=== PATIENT | female | born 1965 | race Caucasian/White ===

== ENCOUNTER 2016-09-03 06:38 | Emergency (ER) | payer OTHER ==
[~2016-09-03] VITALS: Ht 137.2 cm; Wt 68.0 kg
[~2016-09-03 06:38] MED LIST: ALLEGRA ALLERG180 MG PO; ALLEGRA180 MG PO; ALLER-EASE180 MG PO; ANALGESIC BA28.35 GM; ANALGESIC325 MG PO; APAP500 PO; ASPIRIN EC325 M1 PO; BACTROBAN15 GM TP; CARBAMAZEPINE200 M2 PO; CARBAMAZEPINE200 M4 PO; CEPACOL SORE T1 EAC2 MM; CEPACOL SORE T1 EAC7 MM; CEPACOL SORE T1 EAC7 PO; CHILDREN'S ASPI81 M1 PO; CLEOCIN HCL150 MG PO; CLINDAMYCIN HC150 MG PO; COLACE100 MG PO; DARVOCET-N 1001 EACH PO; DEPAKENE250 MG PO; DEPAKOTE ER500 MG PO; DEPAKOTE250 MG PO; DEPAKOTE500 MG PO; DITROPAN XL15 MG PO; DIVALPROEX SOD250 M3 PO; EPIPEN 2-P0.3 MG/0.3 IM; EPIPEN0.3 MG/0.3 IM; FISH OIL 1,001000 M1 PO; FISH OIL 1,001000 M2 PO; FLUOXETINE HCL10 M1 PO; IBUPROFEN 400400 M1 PO; IBUPROFEN 400400 M2 PO; IBUPROFEN 600600 M1 PO; IBUPROFEN 800800 MG PO; IMDUR 30 MG TAB30 M1 PO; IMDUR 60 MG TAB60 M1 PO; IMODIUM A-D1 MG/5 ML PO; LEVOTHYROXIN0.075 MG PO; LIPITOR 20 MG T20 M1 PO; LOPERAMIDE 2 MG2 M1; LOXAPINE10 MG PO; LOXAPINE5 MG PO; MACROBID; MACRODANTIN50 MG PO; MECLIZINE 25 MG25 M1 PO; MICONAZOLE 7100 MG VG; MICONAZOLE NITR45 G1; MIRALAX17 G1 PO; MONISTAT 745 GM VG; MOTRIN 600 MG600 M1 PO; NAPROSYN500 MG PO; NEOSPORIN OINTM15 GM TP; NITROGLYCERIN0.4 MG SL; NITROGLYCERIN0.4 MG SUBLING; NITROSTAT0.4 MG SL; NORCO 5-325 TA1 EACH PO; OS-CAL 500+D C1 EACH PO; OS-CAL ULTRA T1 EACH PO; OXYBUTYNIN CHLO15 MG PO; OYSCO-500500 MG PO; OYSTER SHELL 51 EACH PO; OYSTER SHELL C1 EA12 PO; OYSTER SHELL C1 EA15; PERIDEX 0.12%473 M1; PHILLIPS' LAXA100 MG PO; PROZAC 10 MG CA10 M1; PROZAC 10 MG CA10 M1 PO; PROZAC 20 MG20 M1 PO; PROZAC 20 MG20 MG PO; PROZAC10 MG PO; REPLACE1 EACH PO; RISPERDAL 1 MG T1 MG PO; RISPERDAL0.5 MG PO; ROBITUSSIN DM118 ML PO; ROBITUSSIN10 MG PO; ROBITUSSIN15 MG/5 M1 PO; SIMVASTATIN40 MG PO; SYNTHROID75 MCG PO; TEGRETOL XR200 MG PO; THERA-M CAPLET1 EAC1 PO; THERA-TABS M C1 EACH PO; TIROSINT75 MCG PO; TRIPLE ANTIBIO1 EACH; TRIPLE ANTIBIOT28 G2 TOP; TYLENOL EX-STR500 M2 PO; TYLENOL325 MG PO; UREA85 G1; ZESTRIL5 MG PO; ZOCOR40 MG PO; [UNRECOGNIZED DRUG - OTHER]
== END 2016-09-03 10:21 ==
LOC: ER 06:38
DX: S01.511A Laceration without foreign body of lip, initial encounter (principal); S00.83XA Contusion of other part of head, initial encounter; I25.2 Old myocardial infarction; I10 Essential (primary) hypertension; E11.9 Type 2 diabetes mellitus without complications; M81.0 Age-related osteoporosis without current pathological fracture; F25.9 Schizoaffective disorder, unspecified; Q87.1 Congenital malformation syndromes predominantly associated with short stature; G47.33 Obstructive sleep apnea (adult) (pediatric); Z88.8 Allergy status to other drugs, medicaments and biological substances; Z88.1 Allergy status to other antibiotic agents; Z88.0 Allergy status to penicillin; W01.198A Fall on same level from slipping, tripping and stumbling with subsequent striking against other object, initial encounter; Y93.89 Activity, other specified; Y92.89 Other specified places as the place of occurrence of the external cause; Y99.8 Other external cause status

== ENCOUNTER 2017-02-26 20:50 | Emergency (ER) | payer OTHER ==
[~2017-02-26] VITALS: Ht 147.3 cm
== END 2017-02-26 22:57 | disposition home or self-care (01) ==
LOC: ER 20:50
DX: S60.221A Contusion of right hand, initial encounter (principal); S60.211A Contusion of right wrist, initial encounter; I10 Essential (primary) hypertension; E11.9 Type 2 diabetes mellitus without complications; I25.2 Old myocardial infarction; F20.9 Schizophrenia, unspecified; M81.0 Age-related osteoporosis without current pathological fracture; G47.33 Obstructive sleep apnea (adult) (pediatric); Q87.1 Congenital malformation syndromes predominantly associated with short stature; Z88.8 Allergy status to other drugs, medicaments and biological substances; Z88.1 Allergy status to other antibiotic agents; Z88.2 Allergy status to sulfonamides; W01.0XXA Fall on same level from slipping, tripping and stumbling without subsequent striking against object, initial encounter; Y93.89 Activity, other specified; Y92.89 Other specified places as the place of occurrence of the external cause; Y99.8 Other external cause status

== ENCOUNTER 2017-05-18 08:06 | Emergency (ER) | payer OTHER ==
[~2017-05-18] VITALS: Ht 144.8 cm; Wt 68.0 kg
--- NOTE | ~2017-05-18 | EKG ---
[place] [address] [place] [address] ELECTROCARDIOGRAM REPORT Name: BETY OAKLEY [id number] Admission: 05/18/17 Attend Phys: Discharge: 05/18/17 Date of : 63 Report #: [id number] THIS REPORT FOR: //name// [facility] ED Test Date: 2017-05-18 Test Time: 10:36:06 Pat Name: BETY OAKLEY Department: Room: Gender: F Design Intern: CATHY : 1965 Requested By: Devyn Marrufo Order Number: [id number] MD: Eddie Royal Measurements Intervals [place] Rate: 74 P: 47 IA: 147 QRS: 29 QRSD: 104 T: 62 QT: 460 QTc: 511 Interpretive Statements Sinus rhythm Consider inferior infarct Anteroseptal infarct, age indeterminate Prolonged QT interval Compared to ECG 05/22/2016 03:17:33 T-wave abnormality no longer present Electronically Signed On 05-18-2017 17:33:58 PHOTOGRAPHER SCIENTIFIC by Eddie Royal [email or web address] <ELECTRONICALLY SIGNED> By: Eddie Royal MD, [facility] 05/18/17 1733 35 35 Eddie Royal MD, [facility] /EPI
[2017-05-18] MEDS ORDERED: MYRBETRIQ25 MG PO (10:19)
[2017-05-18] MEDS ORDERED: CRESTOR20 MG PO (10:20)
[2017-05-18] MEDS ORDERED: THERA1 EAC1 PO (10:21)
[2017-05-18] MEDS ORDERED: EPIPEN0.3 MG/0.1 INJECTION (10:23)
[2017-05-18 10:24] LABS: HEMATOCRIT 29.7 % (37.0-47.0); HEMOGLOBIN 10.1 gm/dL (12.0-15.0); MCH 32.7 pg (26.0-34.0); MCHC 34.2 g/dL (28.0-37.0); MCV 95.7 fL (80.0-100.0); PLATELET COUNT 167 thou/uL (150-400); RDW 14.4 % (10.5-14.5); WBC 12.9 thou/uL (4.0-11.0)
[2017-05-18] MEDS ORDERED: BISACODYL SUPP10 MG RECTAL (10:25)
[2017-05-18] MEDS ORDERED: CEPASTAT CHERR18 TA2 PO (10:26)
[2017-05-18] MEDS ORDERED: ROBITUSSIN100 MG/53 PO (10:27)
[2017-05-18 10:28] LABS: CALCIUM 9.5 mg/dL (8.5-10.1); CREATININE 0.7 mg/dL (0.6-1.0)
[2017-05-18] MEDS ORDERED: ALLER-EASE180 MG PO (10:28)
[2017-05-18 10:29] LABS: POTASSIUM 4.3 mmol/L (3.5-5.1)
[2017-05-18 10:30] LABS: APTT 31.7 Seconds (24.5-32.8); INR 1.2; PROTIME 11.8 Seconds (9.3-11.4)
[2017-05-18 10:34] LABS: ALBUMIN 2.1 g/dL (3.4-5.0); TOTAL BILIRUBIN 0.7 mg/dL (<0.1-1.0); TOTAL PROTEIN 6.4 g/dL (6.4-8.2)
[2017-05-18 11:06] LABS: ABSOLUTE NEUTROPHILS 10.7 thou/uL (1.4-8.2); ANISOCYTOSIS SLIGHT; POLYCHROMASIA SLIGHT
[2017-05-18 11:43] VITALS: BP 112/56
[2017-08-07] MEDS ORDERED: ROBITUSSIN100 MG/53 PO (19:06)
== END 2017-05-18 11:49 | disposition short-term general hospital (02) ==
LOC: ER 08:06
PROVIDERS: Emergency Medicine
DX: G93.89 Other specified disorders of brain (principal); I62.00 Nontraumatic subdural hemorrhage, unspecified; I10 Essential (primary) hypertension; E11.22 Type 2 diabetes mellitus with diabetic chronic kidney disease; M81.0 Age-related osteoporosis without current pathological fracture; F20.9 Schizophrenia, unspecified; G47.33 Obstructive sleep apnea (adult) (pediatric); Q87.1 Congenital malformation syndromes predominantly associated with short stature; Z88.8 Allergy status to other drugs, medicaments and biological substances; Z88.1 Allergy status to other antibiotic agents; Z88.0 Allergy status to penicillin; Z88.2 Allergy status to sulfonamides

== ENCOUNTER 2017-07-07 23:32 | Observation (INO) | payer OTHER ==
[~2017-07-07] VITALS: Ht 137.2 cm; Wt 60.8 kg
--- NOTE | ~2017-07-07 | 2DMMODE ---
[facility] [address] [place] [address] 2 D/M-MODE ECHOCARDIOGRAM Name: BETY OAKLEY Room #: 202-P [facility] M.R.#: [id number] Admission: 07/08/17 Attend Phys: Esdras Elena, Discharge: Date of : 63 Date of Service: 07/08/17 1235 Report #: [id number] THIS REPORT FOR: //name// APPROVED REPORT Study performed: 07/08/2017 11:19:16 EXAM: Comprehensive 2D, Doppler, and color-flow Echocardiogram Patient Location: [facility] Room #: 202 Status: routine BSA: 1.46 HR: 71 bpm BP: 121/58 mmHg Rhythm: NSR Other Information Study Quality: Adequate Indications Chest pain. Hx: CHF, HTN, DM, TIA, questionable NE, Prader Willi Syndrome 2D Dimensions RVDd: 34.47 mm LVEF(%): 50.22 (>50%) IVSd: 9.25 (7-11mm) LVOT Diam: 17.44 (18-24mm) LVDd: 34.06 mm PWd: 8.33 (7-11mm) Ascending Ao: 26.56 (22-36mm) LVDs: 25.61 (25-40mm) Aortic Root: 24.00 mm Samuel's LVEF: 50.22 % Volumes Left Atrial Volume (Systole) Single Plane 4CH: 44.51 mL Single Plane 2CH: 40.22 mL Aortic Valve AoV Peak Kenton.: 1.62 m/s AO Peak Gr.: 10.56 mmHg LVOT Max P.93 mmHg LVOT Max V: 0.99 m/s NANO Vmax: 1.46 cm2 Mitral Valve E/A Ratio: 0.9 MV Decel. Time: 144.83 ms [facility] [place] [address] 2 D/M-MODE ECHOCARDIOGRAM Name: CELEBETY Room #: 202-P [facility] M.R.#: [id number] Admission: 07/08/17 Attend Phys: Esdras Elena, Discharge: Date of : 63 Date of Service: 07/08/17 1235 Report #: [id number] MV E Max Kenton.: 0.82 m/s MV A Kenton.: 0.89 m/s MV PHT: 42.00 ms IVRT: 110.73 ms Pulmonary Valve PV Peak Kenton.: 1.00 m/s PV Peak Gr.: 4.03 mmHg Pulmonary Vein P Vein S: 0.67 m/s P Vein D: 0.38 m/s P Vein S/D Ratio: 1.76 Tricuspid Valve TR Peak Kenton.: 2.31 m/s RAP Estimate: 5.00 mmHg TR Peak Gr.: 21.33 mmHg PA Pressure: 26.00 mmHg Left Ventricle The left ventricle is normal size. There is normal left ventricular wall thickness. Left ventricular systolic function is normal. LVEF is 50-55%. Mild diastolic dysfunction is present (impaired relaxation pattern). Right Ventricle The right ventricle is normal size. The right ventricular systolic function is normal. Atria Left atrium is dilated. The right atrium size is normal. Aortic Valve Aortic valve is mildly calcified. No aortic regurgitation is present. There is no aortic valvular stenosis. Mitral Valve The mitral valve is normal in structure. Trace mitral regurgitation. Tricuspid Valve The tricuspid valve is normal in structure. Trace tricuspid regurgitation. Esitmated PAP is 25-30mmHg. Pulmonic Valve The pulmonary valve is normal in structure. Trace pulmonic regurgitation. [address] [address] 2 D/M-MODE ECHOCARDIOGRAM Name: BETY OAKLEY Room #: 202-P [facility] M.R.#: [id number] Admission: 07/08/17 Attend Phys: Esdras Elena, Discharge: Date of : 63 Date of Service: 07/08/17 1235 Report #: [id number] Great Vessels The aortic root is normal in size. The ascending aorta is normal in size. IVC is normal in size and collapses >50% with inspiration. Pericardium There is no pericardial effusion. <Conclusion> The left ventricle is normal size. LVEF is 50-55%. Left atrium is dilated. Aortic valve is mildly calcified. No aortic regurgitation is present. There is no aortic valvular stenosis. The mitral valve is normal in structure. Trace mitral regurgitation. The tricuspid valve is normal in structure. Trace tricuspid regurgitation. Esitmated PAP is 25-30mmHg. The pulmonary valve is normal in structure. Trace pulmonic regurgitation. There is no pericardial effusion. <ELECTRONICALLY SIGNED> By: Damián Galloway MD 07/08/17 1235 1235 1235 Damián Galloway MD /INF
--- NOTE | ~2017-07-07 | EKG ---
[place] [address] [facility] [place] [address] ELECTROCARDIOGRAM REPORT Name: BETY OAKLEY Room #: 202-P [facility]..#: [id number] Admission: 07/08/17 Attend Phys: Esdras Elena MD Discharge: Date of : 63 Report #: [id number] THIS REPORT FOR: //name// [facility] ED Test Date: 2017-07-07 Test Time: 23:34:47 Pat Name: BETY OAKLEY Department: Room: 202 Gender: F Nurse Chemical Dependency: ADOLPH : 1965 Requested By: Devyn Marrufo Order Number: [id number] MD: Eddie Royal Measurements Intervals [place] Rate: 61 P: 45 NM: 165 QRS: 25 QRSD: 103 T: -47 QT: 400 QTc: 403 Interpretive Statements Sinus rhythm Inferior infarct, age indeterminate Possible anterior infarct, age indeterminate Compared to ECG 05/18/2017 10:36:06 Prolonged QT interval no longer present Electronically Signed On 07-08-2017 8:41:09 UTILIZATION REVIEW NURSE by Eddie Royal [email or web address] <ELECTRONICALLY SIGNED> By: Eddie Royal MD, [facility] 07/08/17 0841 2334 2334 Eddie Royal MD, [facility] /EPI
[~2017-07-07 23:32] MED LIST changes: +BISACODYL SUPP10 MG RECTAL; +CEPASTAT CHERR18 TA2 PO; +CRESTOR20 MG PO; +EPIPEN0.3 MG/0.1 INJECTION; +MYRBETRIQ25 MG PO; +ROBITUSSIN100 MG/53 PO; +THERA1 EAC1 PO
[2017-07-07 23:34] VITALS: BP 153/76
[2017-07-08 00:27] LABS: HEMATOCRIT 34.5 % (37.0-47.0); HEMOGLOBIN 11.9 gm/dL (12.0-15.0); MCH 31.8 pg (26.0-34.0); MCHC 34.4 g/dL (28.0-37.0); MCV 92.4 fL (80.0-100.0); PLATELET COUNT 140 thou/uL (150-400); RBC 3.73 mil/uL (4.20-5.00); RDW 14.7 % (10.5-14.5); WBC 3.3 thou/uL (4.0-11.0)
[2017-07-08] MEDS ORDERED: OYSTER SHELL C500 MG PO (00:27)
[2017-07-08 00:33] LABS: ANION GAP 2 mmol/L (7-16); APTT 27.5 Seconds (24.5-32.8); BUN 20 mg/dL (7-18); CALCIUM 9.7 mg/dL (8.5-10.1); CHLORIDE 96 mmol/L (98-107); CO2 35 mmol/L (21-32); CREATININE 0.7 mg/dL (0.6-1.0); GLUCOSE 122 mg/dL (74-106); PROTIME 10.6 Seconds (9.3-11.4); SODIUM 133 mmol/L (136-145)
[2017-07-08 00:41] LABS: ALBUMIN 2.9 g/dL (3.4-5.0); MAGNESIUM 1.5 mg/dL (1.8-2.4); SGOT 26 U/L (15-37); SGPT 22 U/L (30-65); TOTAL BILIRUBIN 0.3 mg/dL (<0.1-1.0); TOTAL PROTEIN 8.1 g/dL (6.4-8.2); TROPONIN-I < 0.04 ng/mL (<0.06)
[2017-07-08 01:51] LABS: ABSOLUTE NEUTROPHILS 1.4 thou/uL (1.4-8.2); ANISOCYTOSIS SLIGHT
[2017-07-08 02:11] VITALS: BP 139/84
[2017-07-08 04:15] VITALS: BP 121/58
[2017-07-08 07:20] LABS: CHOLESTEROL 120 mg/dL (<200); HDL CHOLESTEROL 55 mg/dL (>40); LDL CHOLESTEROL 60 mg/dL (<100); TC:HDL 2.2 Ratio (Not establshd); TRIGLYCERIDE 29 mg/dL (<150); VLDL 6 mg/dL (<40)
[2017-07-08 07:24] LABS: MAGNESIUM 2.3 mg/dL (1.8-2.4); TROPONIN-I < 0.04 ng/mL (<0.06)
[2017-07-08 07:28] VITALS: BP 98/61
[2017-07-08 15:06] LABS: GLYCOHEMOGLOBIN (HGB A1C) 5.7 % (4.8-5.6)
[2017-07-08 15:26] VITALS: BP 93/50
[2017-07-08 16:40] VITALS: BP 93/50
[2017-08-07] MEDS ORDERED: ROBITUSSIN100 MG/53 PO (19:06)
== END 2017-07-08 20:00 | disposition home or self-care (01) ==
LOC: ER 23:32 → EROBS 07-08 01:07 → 2N 07-08 01:07
PROVIDERS: Emergency Medicine; Nurse Practitioner Acute Care
DX: R07.89 Other chest pain (principal); E11.9 Type 2 diabetes mellitus without complications; M81.0 Age-related osteoporosis without current pathological fracture; F25.9 Schizoaffective disorder, unspecified; G47.33 Obstructive sleep apnea (adult) (pediatric); I11.0 Hypertensive heart disease with heart failure; I50.9 Heart failure, unspecified; E78.00 Pure hypercholesterolemia, unspecified; Q87.1 Congenital malformation syndromes predominantly associated with short stature; E03.9 Hypothyroidism, unspecified; E83.42 Hypomagnesemia; I25.2 Old myocardial infarction; E66.9 Obesity, unspecified; F31.9 Bipolar disorder, unspecified; E78.5 Hyperlipidemia, unspecified; R29.6 Repeated falls; Z86.73 Personal history of transient ischemic attack (TIA), and cerebral infarction without residual deficits; Z68.32 Body mass index [BMI] 32.0-32.9, adult

== ENCOUNTER 2017-08-20 19:10 | Emergency (ER) | payer OTHER ==
[~2017-08-20] VITALS: Ht 152.4 cm; Wt 62.5 kg
--- NOTE | ~2017-08-20 | EKG ---
[facility] [place] [address] ELECTROCARDIOGRAM REPORT Name: BETY OAKLEY Room #: [facility] Shantel#: [id number] Admission: 08/20/17 Attend Phys: Discharge: 08/21/17 Date of : 63 Report #: [id number] THIS REPORT FOR: //name// [facility] ED Test Date: 2017-08-20 Test Time: 19:16:30 Pat Name: BETY OAKLEY Department: Room: Gender: F Intel Recruiter: ОЛЬГА : 1965 Requested By: Sharon Louie Order Number: [id number] MD: Eddie Royal Measurements Intervals [place] Rate: 63 P: 47 NE: 165 QRS: 35 QRSD: 99 T: -27 QT: 405 QTc: 418 Interpretive Statements Sinus rhythm Ventricular trigeminy Inferior infarct, age indeterminate Poor R wave progression Compared to ECG 07/07/2017 23:34:47 Ventricular premature complex(es) now present Electronically Signed On 08-21-2017 12:09:20 CDT by Eddie Royal [email or web address] <ELECTRONICALLY SIGNED> By: Eddie Royal MD, [facility] 08/21/17 1209 15 15 Eddie Royal MD, [facility] /EPI
[~2017-08-20 19:10] MED LIST changes: +OYSTER SHELL C500 MG PO
[2017-08-20 20:28] LABS: HEMATOCRIT 30.8 % (37.0-47.0); HEMOGLOBIN 10.5 gm/dL (12.0-15.0); MCH 30.9 pg (26.0-34.0); MCHC 34.1 g/dL (28.0-37.0); MCV 90.7 fL (80.0-100.0); PLATELET COUNT 157 thou/uL (150-400); RDW 14.5 % (10.5-14.5)
[2017-08-20 20:35] LABS: ANION GAP 0 mmol/L (7-16); BUN 18 mg/dL (7-18); CALCIUM 8.8 mg/dL (8.5-10.1); CHLORIDE 100 mmol/L (98-107); CO2 35 mmol/L (21-32); CREATININE 0.7 mg/dL (0.6-1.0); GLUCOSE 130 mg/dL (74-106); POTASSIUM 4.1 mmol/L (3.5-5.1); SODIUM 135 mmol/L (136-145)
[2017-08-20 20:43] LABS: TROPONIN-I < 0.04 ng/mL (<0.06)
[2017-08-20 20:48] LABS: ABSOLUTE NEUTROPHILS 2.9 thou/uL (1.4-8.2)
[2017-08-20] MEDS ORDERED: IBUPROFEN 600600 M1 PO (20:59)
== END 2017-08-21 03:27 | disposition home or self-care (01) ==
LOC: ER 19:10
PROVIDERS: Emergency Medicine
DX: R07.89 Other chest pain (principal); S16.1XXA Strain of muscle, fascia and tendon at neck level, initial encounter; E11.9 Type 2 diabetes mellitus without complications; I25.2 Old myocardial infarction; I11.0 Hypertensive heart disease with heart failure; I50.9 Heart failure, unspecified; E03.9 Hypothyroidism, unspecified; Z88.0 Allergy status to penicillin; Z88.1 Allergy status to other antibiotic agents; Z88.2 Allergy status to sulfonamides; X58.XXXA Exposure to other specified factors, initial encounter; Y93.89 Activity, other specified; Y92.89 Other specified places as the place of occurrence of the external cause; Y99.8 Other external cause status

== ENCOUNTER 2018-01-21 13:13 | Emergency (ER) | payer OTHER ==
[~2018-01-21] VITALS: Ht 142.2 cm; Wt 49.9 kg
--- NOTE | ~2018-01-21 | EKG ---
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
[2018-01-21 13:13] VITALS: BP 179/82
[2018-01-21 13:37] LABS: HEMATOCRIT 34.6 % (37.0-47.0); HEMOGLOBIN 11.9 gm/dL (12.0-15.0); MCH 31.7 pg (26.0-34.0); MCHC 34.4 g/dL (28.0-37.0); MCV 92.2 fL (80.0-100.0); PLATELET COUNT 149 thou/uL (150-400); RBC 3.75 mil/uL (4.20-5.00); RDW 14.4 % (10.5-14.5)
[2018-01-21 13:43] LABS: ANION GAP 3 mmol/L (7-16); BUN 15 mg/dL (7-18); CALCIUM 9.3 mg/dL (8.5-10.1); CHLORIDE 97 mmol/L (98-107); CO2 35 mmol/L (21-32); CREATININE 0.7 mg/dL (0.6-1.0); GLUCOSE 102 mg/dL (74-106); POTASSIUM 3.9 mmol/L (3.5-5.1); SODIUM 135 mmol/L (136-145)
[2018-01-21 13:52] LABS: ALBUMIN 3.2 g/dL (3.4-5.0); SGOT 30 U/L (15-37); SGPT 29 U/L (30-65); TOTAL BILIRUBIN 0.3 mg/dL (<0.1-1.0); TOTAL PROTEIN 7.7 g/dL (6.4-8.2); TROPONIN-I <0.06 ng/mL (<0.06)
[2018-01-21 14:08] LABS: ABSOLUTE NEUTROPHILS 2.3 thou/uL (1.4-8.2)
[2018-01-21] MEDS ORDERED: MELATIN3 MG PO (16:18)
[2018-01-21] MEDS ORDERED: FLONASE 0.05%50 MCG NASAL (16:19)
[2018-01-21] MEDS ORDERED: CEPASTAT CHERR18 TA2 PO (16:20)
[2018-01-21] MEDS ORDERED: VENTOLIN HFA 1818 GM INH (16:21)
[2018-01-21] MEDS ORDERED: PROTONIX40 M1 PO (16:23)
[2018-01-21] MEDS ORDERED: CARAFATE 1 GM TA1 G1 PO (16:23)
[2018-01-21 17:47] VITALS: BP 143/85
[2018-01-21 18:09] VITALS: BP 113/66; BP 139/98
[2018-01-21 19:30] LABS: TSH 0.325 uIU/mL (0.358-3.740)
[2018-01-21 20:55] VITALS: BP 119/59
== END 2018-01-21 20:58 | disposition short-term general hospital (02) ==
LOC: ER 13:13 → EROBS 17:23
PROVIDERS: Internal Medicine; Student in an Organized Health Care Education/Training Program
DX: R07.89 Other chest pain (principal); E11.9 Type 2 diabetes mellitus without complications; M81.0 Age-related osteoporosis without current pathological fracture; E03.9 Hypothyroidism, unspecified; G47.33 Obstructive sleep apnea (adult) (pediatric); F31.9 Bipolar disorder, unspecified; I11.0 Hypertensive heart disease with heart failure; I50.9 Heart failure, unspecified; Z86.73 Personal history of transient ischemic attack (TIA), and cerebral infarction without residual deficits; Z88.8 Allergy status to other drugs, medicaments and biological substances; Z88.1 Allergy status to other antibiotic agents; Z88.0 Allergy status to penicillin; Z88.2 Allergy status to sulfonamides

== ENCOUNTER 2018-08-26 18:56 | Emergency (ER) | payer OTHER ==
[~2018-08-26] VITALS: Ht 149.9 cm; Wt 54.4 kg
[~2018-08-26 18:56] MED LIST changes: +CARAFATE 1 GM TA1 G1 PO; +FLONASE 0.05%50 MCG NASAL; +MELATIN3 MG PO; +PROTONIX40 M1 PO; +VENTOLIN HFA 1818 GM INH
[2018-08-26 22:48] VITALS: BP 179/61
== END 2018-08-26 22:53 | disposition home or self-care (01) ==
LOC: ER 18:56
DX: S50.02XA Contusion of left elbow, initial encounter (principal); E11.9 Type 2 diabetes mellitus without complications; M81.0 Age-related osteoporosis without current pathological fracture; F20.9 Schizophrenia, unspecified; E03.9 Hypothyroidism, unspecified; G47.33 Obstructive sleep apnea (adult) (pediatric); F31.9 Bipolar disorder, unspecified; I11.0 Hypertensive heart disease with heart failure; I50.9 Heart failure, unspecified; E66.9 Obesity, unspecified; Z68.24 Body mass index [BMI] 24.0-24.9, adult; Z86.73 Personal history of transient ischemic attack (TIA), and cerebral infarction without residual deficits; W18.39XA Other fall on same level, initial encounter; Y93.89 Activity, other specified; Y92.89 Other specified places as the place of occurrence of the external cause; Y99.8 Other external cause status

== ENCOUNTER 2019-01-06 11:27 | Emergency (ER) | payer OTHER ==
[~2019-01-06] VITALS: Ht 152.4 cm; Wt 61.2 kg
[2019-01-06 11:46] LABS: HEMATOCRIT 34.6 % (37.0-47.0); HEMOGLOBIN 11.5 gm/dL (12.0-15.0); MCH 31.2 pg (26.0-34.0); MCHC 33.4 g/dL (28.0-37.0); MCV 93.5 fL (80.0-100.0); PLATELET COUNT 146 thou/uL (150-400); RBC 3.69 mil/uL (4.20-5.00); RDW 13.9 % (10.5-14.5); WBC 4.1 thou/uL (4.0-11.0)
[2019-01-06 11:51] LABS: ANION GAP 5 mmol/L (7-16); BUN 16 mg/dL (7-18); CALCIUM 8.9 mg/dL (8.5-10.1); CHLORIDE 96 mmol/L (98-107); CO2 32 mmol/L (21-32); CREATININE 0.6 mg/dL (0.6-1.0); GLUCOSE 87 mg/dL (74-106); POTASSIUM 4.2 mmol/L (3.5-5.1); SODIUM 133 mmol/L (136-145)
[2019-01-06 12:00] LABS: ALBUMIN 3.2 g/dL (3.4-5.0); SGOT 26 U/L (15-37); SGPT 20 U/L (30-65); TOTAL BILIRUBIN 0.3 mg/dL (<0.1-1.0); TOTAL PROTEIN 7.2 g/dL (6.4-8.2); TROPONIN-I <0.06 ng/mL (<0.06)
[2019-01-06] MEDS ORDERED: IMDUR 30 MG TAB30 M1 PO ×2 (12:07→12:08)
[2019-01-06] MEDS ORDERED: ZANTAC 150MG T150 MG PO (12:10)
[2019-01-06] MEDS ORDERED: ROBAFEN100 MG/5 M PO (12:11)
[2019-01-06] MEDS ORDERED: ACETAMINOPHEN500 MG PO (12:12)
[2019-01-06 12:15] LABS: ABSOLUTE NEUTROPHILS 2.5 thou/uL (1.4-8.2); ANISOCYTOSIS 1+
[2019-01-06] MEDS ORDERED: MAG-OXIDE400 MG PO (12:34)
[2019-01-06] MEDS ORDERED: NAPROXEN375 MG PO (12:34)
[2019-01-06 13:56] VITALS: BP 168/81
--- NOTE | 2019-01-07 10:51 | EKG ---
[place] [address] [facility] [place] [address] ELECTROCARDIOGRAM REPORT Name: BETY OAKLEY Room #: 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: : 1965 Requested By: Devyn Marrufo Order Number: [id number] MD: Vladimir Ford Measurements Intervals [place] Rate: 59 P: 50 NE: 172 QRS: 22 QRSD: 101 T: 31 QT: 406 QTc: 403 Interpretive Statements Sinus rhythm Consider inferior infarct Compared to ECG 01/21/2018 13:13:41 Left ventricular hypertrophy no longer present Early repolarization no longer present Electronically Signed On 01-07-2019 10:51:15 CDT by Vladimir Ford [email or web address] <ELECTRONICALLY SIGNED> By: Vladimir Ford MD 01/07/19 1051 1128 1128 Vladimir Ford MD /SASHA
== END 2019-01-06 14:06 | disposition home or self-care (01) ==
LOC: ER 11:27
PROVIDERS: Emergency Medicine
DX: E83.42 Hypomagnesemia (principal); R07.89 Other chest pain; R06.00 Dyspnea, unspecified; E11.9 Type 2 diabetes mellitus without complications; M81.0 Age-related osteoporosis without current pathological fracture; F20.9 Schizophrenia, unspecified; E03.9 Hypothyroidism, unspecified; G47.33 Obstructive sleep apnea (adult) (pediatric); F31.9 Bipolar disorder, unspecified; I11.0 Hypertensive heart disease with heart failure; I50.9 Heart failure, unspecified; Z88.4 Allergy status to anesthetic agent; Z88.8 Allergy status to other drugs, medicaments and biological substances; Z88.1 Allergy status to other antibiotic agents; Z88.0 Allergy status to penicillin; Z88.2 Allergy status to sulfonamides; Z86.73 Personal history of transient ischemic attack (TIA), and cerebral infarction without residual deficits

== ENCOUNTER 2019-03-05 20:33 | Emergency (ER) | payer OTHER ==
[~2019-03-05] VITALS: Ht 137.2 cm; Wt 60.3 kg
[~2019-03-05 20:33] MED LIST changes: +ACETAMINOPHEN500 MG PO; +MAG-OXIDE400 MG PO; +NAPROXEN375 MG PO; +ROBAFEN100 MG/5 M PO; +ZANTAC 150MG T150 MG PO
[2019-03-05 20:34] VITALS: BP 165/73
== END 2019-03-05 22:02 | disposition home or self-care (01) ==
LOC: ER 20:33
DX: S00.83XA Contusion of other part of head, initial encounter (principal); I11.0 Hypertensive heart disease with heart failure; I50.9 Heart failure, unspecified; I25.2 Old myocardial infarction; E11.9 Type 2 diabetes mellitus without complications; M81.0 Age-related osteoporosis without current pathological fracture; E03.9 Hypothyroidism, unspecified; F25.9 Schizoaffective disorder, unspecified; Z86.73 Personal history of transient ischemic attack (TIA), and cerebral infarction without residual deficits; Z88.1 Allergy status to other antibiotic agents; Z88.0 Allergy status to penicillin; Z88.2 Allergy status to sulfonamides; Z88.6 Allergy status to analgesic agent; W18.39XA Other fall on same level, initial encounter; Y92.002 Bathroom of unspecified non-institutional (private) residence as the place of occurrence of the external cause; Y93.89 Activity, other specified; Y99.8 Other external cause status

== ENCOUNTER 2019-07-07 16:29 | Emergency (ER) | payer OTHER ==
[~2019-07-07] VITALS: Ht 137.2 cm; Wt 74.8 kg
[2019-07-07] MEDS ORDERED: CLEOCIN HCL150 MG PO (17:45)
[2019-07-07 18:06] VITALS: BP 165/78
== END 2019-07-07 17:45 ==
LOC: ER 16:29
DX: S01.511A Laceration without foreign body of lip, initial encounter (principal); I25.2 Old myocardial infarction; E11.9 Type 2 diabetes mellitus without complications; M81.0 Age-related osteoporosis without current pathological fracture; E03.9 Hypothyroidism, unspecified; E66.9 Obesity, unspecified; I11.0 Hypertensive heart disease with heart failure; I50.9 Heart failure, unspecified; Z86.73 Personal history of transient ischemic attack (TIA), and cerebral infarction without residual deficits; Z79.899 Other long term (current) drug therapy; Z88.8 Allergy status to other drugs, medicaments and biological substances; Z88.1 Allergy status to other antibiotic agents; Z88.0 Allergy status to penicillin; Z88.2 Allergy status to sulfonamides; W18.30XA Fall on same level, unspecified, initial encounter; Y93.89 Activity, other specified; Y92.89 Other specified places as the place of occurrence of the external cause; Y99.8 Other external cause status

== ENCOUNTER 2019-09-22 20:15 | Emergency (ER) | payer OTHER ==
[~2019-09-22] VITALS: Ht 147.3 cm; Wt 40.8 kg
[2019-09-22] MEDS ORDERED: RISPERDAL 1 MG T1 MG PO (20:26)
[2019-09-22] MEDS ORDERED: SUPER THERAVIT1 EACH PO (20:27)
[2019-09-22] MEDS ORDERED: SILTUSSIN DM D118 ML PO (20:31)
[2019-09-22] MEDS ORDERED: TRIPLE ANTIBIOT28 G2 TOP (20:34)
[2019-09-22] MEDS ORDERED: ANTI-DIARRHEAL2 M1 PO (20:36)
[2019-09-22] MEDS ORDERED: VENTOLIN HFA 1818 GM INH (20:37)
[2019-09-22] MEDS ORDERED: CARAFATE1 GM/10 ML PO (20:39)
[2019-09-22] MEDS ORDERED: ROBAFEN100 MG/5 M PO (20:42)
[2019-09-22] MEDS ORDERED: HALLS COUGH DR1 EACH PO (20:43)
[2019-09-22] MEDS ORDERED: [UNRECOGNIZED DRUG - OTHER] PO (20:46)
[2019-09-22 22:09] VITALS: BP 189/96
== END 2019-09-22 22:17 | disposition home or self-care (01) ==
LOC: ER 20:15
DX: S01.01XA Laceration without foreign body of scalp, initial encounter (principal); I25.2 Old myocardial infarction; E11.9 Type 2 diabetes mellitus without complications; E03.9 Hypothyroidism, unspecified; E66.9 Obesity, unspecified; M81.0 Age-related osteoporosis without current pathological fracture; I11.0 Hypertensive heart disease with heart failure; I50.9 Heart failure, unspecified; Z79.899 Other long term (current) drug therapy; Z88.1 Allergy status to other antibiotic agents; Z88.2 Allergy status to sulfonamides; Z88.0 Allergy status to penicillin; Z88.8 Allergy status to other drugs, medicaments and biological substances; Z86.718 Personal history of other venous thrombosis and embolism; W18.39XA Other fall on same level, initial encounter; Y93.89 Activity, other specified; Y92.89 Other specified places as the place of occurrence of the external cause; Y99.8 Other external cause status

== ENCOUNTER 2020-04-18 18:28 | Emergency (ER) | payer OTHER ==
[~2020-04-18] VITALS: Ht 152.4 cm; Wt 78.0 kg
[~2020-04-18 18:28] MED LIST changes: +ANTI-DIARRHEAL2 M1 PO; +CARAFATE1 GM/10 ML PO; +HALLS COUGH DR1 EACH PO; +SILTUSSIN DM D118 ML PO; +SUPER THERAVIT1 EACH PO; +[UNRECOGNIZED DRUG - OTHER] PO
[2020-04-18 19:34] VITALS: BP 170/64
== END 2020-04-18 19:51 ==
LOC: ER 18:28
DX: S00.83XA Contusion of other part of head, initial encounter (principal); I25.2 Old myocardial infarction; E11.9 Type 2 diabetes mellitus without complications; M81.0 Age-related osteoporosis without current pathological fracture; E03.9 Hypothyroidism, unspecified; M19.90 Unspecified osteoarthritis, unspecified site; F31.9 Bipolar disorder, unspecified; I11.0 Hypertensive heart disease with heart failure; I50.9 Heart failure, unspecified; Z86.73 Personal history of transient ischemic attack (TIA), and cerebral infarction without residual deficits; Z79.899 Other long term (current) drug therapy; Z79.82 Long term (current) use of aspirin; Z88.8 Allergy status to other drugs, medicaments and biological substances; Z88.1 Allergy status to other antibiotic agents; Z88.0 Allergy status to penicillin; W18.39XA Other fall on same level, initial encounter; Z88.2 Allergy status to sulfonamides; Y93.89 Activity, other specified; Y92.89 Other specified places as the place of occurrence of the external cause; Y99.8 Other external cause status

== ENCOUNTER 2021-01-27 11:52 | Emergency (ER) | payer OTHER ==
[~2021-01-27] VITALS: Ht 157.5 cm; Wt 77.1 kg
--- NOTE | ~2021-01-27 | EMS ---
[place] [address] EMS Patient Care Report Name: BETY OAKLEY Room #: DEP PATRICIA Funes#: [id number] Admission: 01/27/21 Attend Phys: Discharge: 01/27/21 Date of : 63 Report #: [id number] THIS REPORT FOR: //name// Report Transmitted: 01/27/2021 15:45 EMS Care Summary [place], [place]/[facility] Incident [id number] @ 01/27/2021 11:17 Incident Location [address] [place] [address] Patient BETY OAKLEY Female, 55 Years 1965 Patient Address [address] [place] [address] Patient History Other,Angina,Congestive Heart Failure (CHF),Hypertension (HTN),Bipolar II Disorder,Schizoaffective Disorder,Mild cognitive impairment, Patient Allergies Penicillin allergy,Sulfa,Sulfur allergy, Patient Medications Pantoprazole, Myrbetriq, Fluticasone, Levothyroxine, Divalproex Sodium, Risperidone, Rosuvastatin, Fluoxetine, Docusate Sodium, Chief Complaint Chest pain Disposition Transported No Lights/[place] Dispatch Reason Chest Pain (Non-Traumatic) Transported To [facility] Narrative Arrived on scene of a assisted living facility to find our patient seated in a chair in the front room of the facility. Patient stated she [place] "[place] [address] EMS Patient Care Report Name: BETY OAKLEY Room #: DEP [facility]#: [id number] Admission: 01/27/21 Attend Phys: Discharge: 01/27/21 Date of : 63 Report #: [id number] a DVD when my chest started to hurt." Patient stated the pain was on the right side of her chest, and she denied any radiation of the pain. Patient denied any pain on inspiration. Due to patient cognitive disability an accurate and truthful history was difficult to obtain. Patient was speaking in complete sentences upon our arrival and did not appear to be in any obvious distress. Patient was assisted onto the cot. Vital signs and 3 lead EKG obtained. Patient transported and transferred to receiving facility without change in patient condition. Initial Vitals @11:36P: 58,R: 16,BP: 161/77,Pain: 10/10,GCS: 15,SpO2: 93,Revised Trauma: 12, @11:38P: 58,R: 16,BP: 156/77,Pain: 10/10,GCS: 15,CO: 2,SpO2: 93,Revised Trauma: 12, Assessments @11:30MENTAL:Event Oriented,Place Oriented,Time Oriented,Person Oriented,SKIN:HEENT:Head/Face: Other,Neck/Airway: No Abnormalities,LUNG SOUNDS:General: No Abnormalities,ABDOMEN:General: No Abnormalities,PELVIS//GI:No Abnormalities,EXTREMITIES:Left Arm: No Abnormalities,Right Arm: No Abnormalities,Left Leg: No Abnormalities,Right Leg: No Abnormalities,PULSE:NEURO:No Abnormalities, Impression Chest Pain / Discomfort Procedures @11:30ALS AssessmentResponse: UnchangedSucceeded@11:363-Lead ECGResponse: UnchangedSucceeded Timeline 11:16,Call Received 11:16,Dispatch Notified 11:17,Dispatched 11:19,En Route 11:27,On Scene 11:30,At Patient 11:30,ALS Assessment,Response: UnchangedSucceeded, 11:36,3-Lead ECG,Response: UnchangedSucceeded, 11:36,BP: 161/77 M,PULSE: 58,RR: 16 R,SPO2: 93 Ox,ETCO2: ,BG: ,PAIN: 10,GCS: 15, 11:36,Depart Scene 11:38,BP: 156/77 M,PULSE: 58,RR: 16 R,SPO2: 93 Ox,ETCO2: ,BG: ,PAIN: 10,GCS: 15, 11:43,At Destination 12:04,Call Closed [facility] [address] [place] [address] EMS Patient Care Report Name: BETY OAKLEY Room #: DEP [facility].#: [id number] Admission: 01/27/21 Attend Phys: Discharge: 01/27/21 Date of : 63 Report #: [id number] Disclaimer v1.1 Copyright 2020 [employer] This EMS Care Summary contains data elements from the applicable legal record (which may be displayed differently). It is designed to provide pertinent information for the following purposes: continuity of care, clinical quality, and state data reporting. The complete legal record is available to ED staff and administrators of the receiving hospital in [facility]'s Patient Tracker. All data is provided "as is."
--- NOTE | ~2021-01-27 | EMS ---
[place] [address] EMS Patient Care Report Name: BETY OAKLEY Room #: DEP PATRICIA Funes#: [id number] Admission: 01/27/21 Attend Phys: Discharge: 01/27/21 Date of : 63 Report #: [id number] THIS REPORT FOR: //name// Report Transmitted: 01/29/2021 16:14 EMS Care Summary [place], [place]/[facility] Incident [id number] @ 01/27/2021 11:17 Incident Location [address] [place] [address] Patient BETY OAKLEY Female, 55 Years 1965 Patient Address [address] [place] [address] Patient History Other,Angina,Congestive Heart Failure (CHF),Hypertension (HTN),Bipolar II Disorder,Schizoaffective Disorder,Mild cognitive impairment, Patient Allergies Penicillin allergy,Sulfa,Sulfur allergy, Patient Medications Pantoprazole, Myrbetriq, Fluticasone, Levothyroxine, Divalproex Sodium, Risperidone, Rosuvastatin, Fluoxetine, Docusate Sodium, Chief Complaint Chest pain Disposition Transported No Lights/[place] Dispatch Reason Chest Pain (Non-Traumatic) Transported To [facility] Narrative Arrived on scene of a assisted living facility to find our patient seated in a chair in the front room of the facility. Patient stated she had "[place] [address] EMS Patient Care Report Name: BETY OAKLEY Room #: DEP [facility]#: [id number] Admission: 01/27/21 Attend Phys: Discharge: 01/27/21 Date of : 63 Report #: [id number] a DVD when my chest started to hurt." Patient stated the pain was on the right side of her chest, and she denied any radiation of the pain. Patient denied any pain on inspiration. Due to patient cognitive disability an accurate and truthful history was difficult to obtain. Patient was speaking in complete sentences upon our arrival and did not appear to be in any obvious distress. Patient was assisted onto the cot. Vital signs and 3 lead EKG obtained. Patient transported and transferred to receiving facility without change in patient condition. Initial Vitals @11:36P: 58,R: 16,BP: 161/77,Pain: 10/10,GCS: 15,SpO2: 93,Revised Trauma: 12, @11:38P: 58,R: 16,BP: 156/77,Pain: 10/10,GCS: 15,CO: 2,SpO2: 93,Revised Trauma: 12, Assessments @11:30MENTAL:Event Oriented,Place Oriented,Time Oriented,Person Oriented,SKIN:HEENT:Head/Face: Other,Neck/Airway: No Abnormalities,LUNG SOUNDS:General: No Abnormalities,ABDOMEN:General: No Abnormalities,PELVIS//GI:No Abnormalities,EXTREMITIES:Left Arm: No Abnormalities,Right Arm: No Abnormalities,Left Leg: No Abnormalities,Right Leg: No Abnormalities,PULSE:NEURO:No Abnormalities, Impression Chest Pain / Discomfort Procedures @11:30ALS AssessmentResponse: UnchangedSucceeded@11:363-Lead ECGResponse: UnchangedSucceeded Timeline 11:16,Call Received 11:16,Dispatch Notified 11:17,Dispatched 11:19,En Route 11:27,On Scene 11:30,At Patient 11:30,ALS Assessment,Response: UnchangedSucceeded, 11:36,3-Lead ECG,Response: UnchangedSucceeded, 11:36,BP: 161/77 M,PULSE: 58,RR: 16 R,SPO2: 93 Ox,ETCO2: ,BG: ,PAIN: 10,GCS: 15, 11:36,Depart Scene 11:38,BP: 156/77 M,PULSE: 58,RR: 16 R,SPO2: 93 Ox,ETCO2: ,BG: ,PAIN: 10,GCS: 15, 11:43,At Destination 12:04,Call Closed [facility] [address] [place] [address] EMS Patient Care Report Name: BETY OAKLEY [id number] Admission: 01/27/21 Attend Phys: Discharge: 01/27/21 Date of : 63 Report #: [id number] Disclaimer v1.1 Copyright 2020 [employer] This EMS Care Summary contains data elements from the applicable legal record (which may be displayed differently). It is designed to provide pertinent information for the following purposes: continuity of care, clinical quality, and state data reporting. The complete legal record is available to ED staff and administrators of the receiving hospital in [facility]'s Patient Tracker. All data is provided "as is."
[2021-01-27 12:19] LABS: ABSOLUTE NEUTROPHILS 3.6 thou/uL (1.4-8.2); BASOPHILS 0.4 % (0.0-2.0); EOSINOPHILS 1.3 % (0.0-3.0); HEMATOCRIT 37.5 % (37.0-47.0); HEMOGLOBIN 12.4 gm/dL (12.0-15.0); LYMPHOCYTES 18.2 % (24.0-44.0); MCH 30.3 pg (26.0-34.0); MCHC 33.1 g/dL (28.0-37.0); MCV 91.6 fL (80.0-100.0); MONOCYTES 18.9 % (1.0-8.0); PLATELET COUNT 146 thou/uL (150-400); POLYS 61.2 % (36.0-66.0); RBC 4.09 mil/uL (4.20-5.00); RDW 14.8 % (10.5-14.5)
[2021-01-27 12:29] LABS: CALCIUM 9.1 mg/dL (8.5-10.1); CREATININE 0.7 mg/dL (0.6-1.0); POTASSIUM 4.4 mmol/L (3.5-5.1)
[2021-01-27 15:21] VITALS: BP 148/72
--- NOTE | 2021-01-27 15:55 | EKG ---
[facility] [place] [address] ELECTROCARDIOGRAM REPORT Name: BETY OAKLEY Room #: [facility] Shantel#: [id number] Admission: 01/27/21 Attend Phys: Discharge: 01/27/21 Date of : 63 Report #: [id number] [facility] ED Test Date: 2021-01-27 Test Time: 11:55:33 Pat Name: BETY OAKLEY Department: Room: Gender: F Satellite Instruction Facilitator: MARCELO : 1965 Requested By: Emiliano Carrillo Order Number: [id number] MD: Lex Sun Measurements Intervals [place] Rate: 63 P: 10 CA: 185 QRS: 37 QRSD: 105 T: -69 QT: 413 QTc: 423 Interpretive Statements Sinus rhythm Multiform ventricular premature complexes Probable LVH with secondary repol abnrm Inferior infarct, age indeterminate Compared to ECG 01/06/2019 11:28:04 Ventricular premature complex(es) now present Left ventricular hypertrophy now present Q waves now present Myocardial infarct finding still present Electronically Signed On 01-27-2021 15:55:20 CDT by Lex Sun [email or web address] <ELECTRONICALLY SIGNED> By: Lex Sun MD, [facility] 01/27/21 1555 1155 1155 Lex Sun MD, [facility] /EPI
--- NOTE | 2021-01-29 08:14 | EKG ---
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 : 1965 Requested By: Addison Nuñez Order Number: [id number] MD: Lex Sun Measurements Intervals [employer] Rate: 62 P: 49 NC: 170 QRS: 23 QRSD: 103 T: 46 QT: 441 QTc: 448 Interpretive Statements Sinus rhythm Probable LVH with secondary repol abnrm Probable inferior infarct, old Anterior Q waves, possibly due to LVH Compared to ECG 01/27/2021 11:55:33 Q waves now present Ventricular premature complex(es) no longer present Myocardial infarct finding still present Electronically Signed On 01-29-2021 8:13:41 CDT by Lex Sun [email or web address] <ELECTRONICALLY SIGNED> By: Lex Sun MD, [facility] 01/29/21 0813 140 140 Lex Sun MD, [facility] /EPI
== END 2021-01-27 15:23 | disposition home or self-care (01) ==
LOC: ER 11:52
PROVIDERS: Student in an Organized Health Care Education/Training Program
DX: R07.89 Other chest pain (principal); E11.9 Type 2 diabetes mellitus without complications; I11.0 Hypertensive heart disease with heart failure; I50.9 Heart failure, unspecified; F20.9 Schizophrenia, unspecified; E03.9 Hypothyroidism, unspecified; E66.9 Obesity, unspecified; Z79.82 Long term (current) use of aspirin; Z79.899 Other long term (current) drug therapy; Z88.1 Allergy status to other antibiotic agents; Z88.0 Allergy status to penicillin; Z88.2 Allergy status to sulfonamides; Z88.6 Allergy status to analgesic agent